=== PATIENT | female | born 1955 | race Caucasian/White ===

== ENCOUNTER → 2016-09-22 | Day surgery (SDC) | payer BC ==
[~2016-09-22] MED LIST: ACETAMINOPHEN 1000 MG/100 ML VIAL IV ONE; ACETAMINOPHEN/HYDROcodone 325 MG/5 MG TAB ONE; BUPIVACAINE/EPINEPHRINE 0.25% 50 ML VIAL ONE; KETOROLAC TROMETHAMINE 30 MG/ML (IVP) VIAL IV PUSH ONE; LACTATED RINGER'S 1000 ML INJ 1,000 ML ONE; LIDOCAINE 1%/EPINEPHrine 1:100,000 SOLN 20 ML VIAL ONE; MIDAZOLAM HCL 2 MG/2 ML VIAL ONE; MORPHINE SULFATE 4 MG/ML INJ ONE; ONDANSETRON HCL 4 MG/2 ML VIAL IV PUSH ONE; PROPOFOL 200 MG/20 ML AMP IV ONE; VANCOMYCIN HCL 1000 MG VIAL ONE
--- NOTE | 2016-09-24 07:59 | MP ---
cc: ANA M BISHOP M.D. DATE OF SURGERY: 09/22/2016 PROCEDURE Laparoscopic left inguinal hernia repair with mesh. PREOPERATIVE DIAGNOSIS Symptomatic left inguinal hernia. POSTOPERATIVE DIAGNOSIS Reducible symptomatic left inguinal hernia. ANESTHESIA LMA. SURGEON Norman ESTIMATED BLOOD LOSS Less than 10 mL. FLUIDS 1000 mL crystalloid. COMPLICATIONS None. DRAINS None. SPECIMEN None. C[employer] INVESTIGATOR AMANDA Suazo The nurse practitioner was present for the entire procedure from the beginning to the end. Her presence was required for assistance, retraction, exposure, and resection of all port structures. PROCEDURE IN DETAIL The patient was taken to the operating room after marking the correct site and confirming this with the patient. She was placed on the operating table in the supine position. After an adequate level of laryngeal mask anesthesia was instituted the groin was sterilely prepped and draped. A timeout was taken confirming the correct patient, site and procedure to be performed. The skin and subcutaneous tissue was infiltrated with local anesthetic and an umbilical incision was made and carried through the fascia sharply. The peritoneal cavity was directly visualized. A 12 mm balloon trocar was inserted and the balloon inflated. The abdomen was insufflated. The patient was placed in Trendelenburg position. A 12 mm trocar was placed on the left and a 5 mm trocar on the right, both under direct vision. Both entered the abdominal cavity under direct vision uneventfully. The peritoneum was then incised and peeled downward. Loose omental tissue was taken down from Grady's ligament and off of the anterior abdominal wall. The hernia was reduced into the abdominal cavity and the hernia sac reduced as well. The round ligament was divided to allow for easier repair. After Grady's ligament had been dissected free from surrounding loose tissue, a 3 x 6 inch piece of UltraPro mesh was brought up and trimmed on the corners. This was placed into the pelvis and fixed at multiple points on Grady's ligament with 4.0 mm ammon. Multiple 4.8 mm ammon were then used to fix the mesh onto the anterior abdominal wall. The hernia defect was tested and seen to be surrounded by mesh by at least 4-[address]. At this point with hemostasis assured, insufflation was decreased with intra-abdominal pressure decreased to 11 and the peritoneum was re-closed with 4.8 mm ammon. Insufflation was then discontinued completely and the left and right lower quadrant ports were removed under direct vision. No bleeding was noted from the port sites. The laparoscope and umbilical port were removed. The fascia was closed in the left lower quadrant port site and in the umbilicus with 0 Vicryl suture in an interrupted fashion. The remaining local anesthetic was injected into the trocar sites as well as into the left groin. The skin was closed at all three trocar sites with 4-0 Vicryl in an interrupted buried fashion. The trocar sites were dressed with Steri-Strips. The patient was taken back to the recovery room in stable condition. She tolerated the procedure well. MD PADDY Mariscal/CHAVEZ /5:56 PM /7:45 AM
== END | disposition home or self-care (01) ==
LOC: ESDC 08:23
PROVIDERS: ATTEND Surgery Trauma Surgery
DX: K40.90 Unilateral inguinal hernia, without obstruction or gangrene, not specified as recurrent (principal)
CPT/HCPCS: 00840; 49650; C1781; J0131; J1885; J2250; J2270; J2405; J3010; J3370; J7120